=== PATIENT | female | born 1985 | race Caucasian/White ===

== ENCOUNTER 2018-01-05 11:51 | Emergency (ER) | payer OTHER ==
--- NOTE | 2018-01-05 12:43 | ED Physician Documentation ---
PD HPI SKIN - Stated complaint Stated Complaint: RASHES ON BACK - Chief complaint Chief Complaint: Wound - History obtained from History obtained from: Patient - History of Present Illness Timing - onset: Yesterday Timing - duration: Days (2) Timing - details: Gradual onset Pain level max: 7 Pain level now: 7 Location: Back Quality / character: Itchy, Painful, Burning, Other (clusters, no vesicles or pustules) Improved by: Other (hasn't tried anything) Worsened by (comment): COMMENT (nothing) Associated symptoms: No: Fever, Headache, Facial swelling, Dyspnea, Abd pain, N/ V/D Contributing factors: No: Exposed to medication, Exposed to food, Exposed to soap / lotion, Exposed to Poison madeline/oak, Insect bite /sting, Recent illness Similar symptoms before: Has not had sx before Recently seen: Not recently seen Review of Systems Constitutional: denies: Fever, Chills : denies: Now EGA Musculoskeletal: denies: Neck pain, Back pain Neurologic: denies: Headache PD PAST MEDICAL HISTORY - Past Medical History Past Medical History: Yes Derm: Eczema - Past Surgical History Past Surgical History: Yes HEENT: Tonsil/Adenoidectomy - Social History Does the pt smoke?: No Smoking Status: Never smoker Does the pt drink ETOH?: Yes Does the pt have substance abuse?: No - Immunizations Immunizations are current?: Yes PD ED PE NORMAL - Vitals Vital signs reviewed: Yes - General General: Alert and oriented X 3, No acute distress - Cardiac Cardiac: RRR, Strong equal pulses - Respiratory Respiratory: No respiratory distress, Clear bilaterally - Derm Derm: Warm and dry, Other (maculopapular exanthem over the back. + excoriation. no pustules or vesicles. ) - Neuro Neuro: Alert and oriented X 3 - Psych Psych: Normal mood, Normal affect Results - Vitals Vitals: Vital Signs - 24 hr 01/05/18 12:05 Temperature 36.3 C L Heart Rate 57 L Respiratory 16 Rate Blood Pressure 118/64 O2 Saturation 100 Oxygen O2 Source Room air PD MEDICAL DECISION MAKING - ED course Complexity details: considered differential, d/w patient ED course: Patient is a 32-year-old female who presents to the emergency department with a maculopapular exanthem of unclear etiology. Will treat as a nonspecific dermatitis. Does not recall any new detergents, soaps, sheets, clothes, travel , etc. Will place on steroids for the next several days and follow-up with her doctor. Will utilize Benadryl as needed for itching at home. Patient counseled regarding signs and symptoms for which I believe and urgent re- evaluation would be necessary. Patient with good understanding of and agreement to plan and is comfortable going home at this time This document was made in part using voice recognition software. While efforts are made to proofread this document, sound alike and grammatical errors may occur. Departure - Departure Disposition: 01 Home, Self Care Clinical Impression: Dermatitis Condition: Good Instructions: ED Dermatitis Non Specific Rash Follow-Up: your,doctor in 1 week [Other] Comments: Return if you worsen. The cause of your symptoms is unclear today. You can use benadryl for itching.
[2018-01-05] MEDS ORDERED: predniSONE 20 MG TABLET PO STA (12:48)
[2018-01-05 13:05] VITALS: BP 126/72
== END 2018-01-05 13:02 | disposition home or self-care (01) ==
LOC: ED 11:51
DX: L30.9 Dermatitis, unspecified (principal)
CPT/HCPCS: 99283; J7512

== ENCOUNTER 2018-08-23 08:42 | Emergency (ER) | payer OTHER ==
[2018-08-23 08:57] VITALS: BP 119/69
--- NOTE | 2018-08-23 09:11 | ED Physician Documentation ---
PD HPI HEADACHE - Stated complaint Stated Complaint: MIGRAINE - Chief complaint Chief Complaint: Neuro - History obtained from History obtained from: Patient - History of Present Illness Timing - onset: How many days ago (2) Timing - duration: Days (2) Timing - details: Gradual onset Location: Right Associated symptoms: Nausea. No: Fever, Vomiting Worsened by: Light, Noise Similar symptoms before: Diagnosis (migraine) - Additional information Additional information: The patient is a 32-year-old female, at 23 weeks gestation, who presents with right sided headache that started 2 days ago and has persisted since that time. She is also had diarrhea for the past 3 days, as well as nausea. She denies abdominal pain, vomiting, or fever. She has history of migraine headaches that usually resolved with rest and a dark, quiet room. The last time she had a headache similar to her current headache was more than one year ago. She is inclined to not take any medication because of her . Review of Systems Constitutional: denies: Fever Eyes: reports: Photophobia Ears: denies: Tinnitus/ringing Nose: denies: Congestion Throat: denies: Sore throat Cardiac: denies: Chest pain / pressure Respiratory: denies: Dyspnea, Cough GI: reports: Nausea. denies: Abdominal Pain, Vomiting : reports: Now EGA (23 weeks gestation.). denies: Dysuria Skin: denies: Rash Musculoskeletal: denies: Back pain, Extremity pain Neurologic: reports: Headache. denies: Focal weakness, Numbness PD PAST MEDICAL HISTORY - Past Medical History Past Medical History: Yes Neuro: Migraines Endocrine/Autoimmune: None Derm: Eczema - Past Surgical History Past Surgical History: Yes HEENT: Tonsil/Adenoidectomy - Present Medications Home Medications: Ambulatory Orders Medication Instructions Recorded Confirmed HYDROcod/ACETAM 5/325 [[place] 5/325] 1 - 2 ea PO Q6H PRN #12 tablet 08/23/18 Pnv No.122/Iron/Folic Acid 08/23/18 [ Multi Tablet] Prochlorperazine Maleate 10 mg PO TID PRN #15 tablet 08/23/18 [Compazine] - Allergies Allergies/Adverse Reactions: Allergies Allergy/AdvReac Type Severity Reaction Status Date / Time aspirin AdvReac Nausea Verified 01/05/18 12:53 - Social History Does the pt smoke?: No Smoking Status: Never smoker Does the pt drink ETOH?: No Does the pt have substance abuse?: No - Immunizations Immunizations are current?: Yes - POLST Patient has POLST: No PD ED PE NORMAL - Vitals Vital signs reviewed: Yes (normal) - General General: Alert and oriented X 3, Well developed/nourished - HEENT HEENT: Atraumatic, EOMI, Moist mucous membranes, Pharynx benign, Other (Fundi with sharp disc margins, without papilledema.) - Neck Neck: Supple, no meningeal sign, No adenopathy, No JVD - Cardiac Cardiac: RRR, No murmur - Respiratory Respiratory: No respiratory distress, Clear bilaterally - Abdomen Abdomen: Soft, Non tender, Other (Gravid uterus, with normal heart rate of 166.) - Back Back: No CVA TTP - Derm Derm: No rash - Extremities Extremities: No edema, No calf tenderness / cord - Neuro Neuro: Alert and oriented X 3, No motor deficit, No sensory deficit, Normal speech Results - Vitals Vitals: Oxygen O2 Source Room air PD MEDICAL DECISION MAKING - ED course Complexity details: considered differential, d/w patient ED course: The patient's presentation is most consistent with migraine headache. Her presentation does not suggest meningitis, preeclampsia, temporal arteritis, or pseudotumor cerebri. Viral syndrome is considered, given her recent diarrhea, but is less likely. I offered treatment with IV medication, but the patient declined because of her need to drive home after treatment. She is being discharged with prescriptions for Compazine and for Vicodin, 12 tablets. I discussed with her symptomatic treatment, outpatient follow-up, as well as potentially worrisome signs or symptoms that should prompt reevaluation in the emergency department. Departure - Departure Disposition: 01 Home, Self Care Clinical Impression: Headache Qualifiers: Headache type: unspecified Headache chronicity pattern: episodic headache Intractability: not intractable Qualified Code(s): R51 - Headache Qualifiers: Weeks of gestation: 23 weeks Qualified Code(s): Z3A.23 - 23 weeks gestation of Condition: Stable Instructions: ED Headache Migraine Follow-Up: [facility] [Provider Group] Prescriptions: HYDROcod/ACETAM 5/325 [[place] 5/325] 1 - 2 ea PO Q6H PRN #12 tablet PRN Reason: Pain Prochlorperazine Maleate [Compazine] 10 mg PO TID PRN #15 tablet PRN Reason: Nausea / Vomiting Comments: Drink plenty of fluids. Take Compazine as prescribed if needed for nausea or headache. You can use Vicodin as prescribed if needed for headache. Follow-up with your primary physician within 1-2 weeks. Call to schedule an appointment. Return to the emergency department if you develop increasing headache, persistent vomiting, or otherwise worsening symptoms. Forms: Activity restrictions Discharge Date/Time: 08/23/18 09:16
== END 2018-08-23 09:16 | disposition home or self-care (01) ==
LOC: ED 08:42
DX: O26.892 Other specified pregnancy related conditions, second trimester (principal); R51 Headache; Z3A.23 23 weeks gestation of pregnancy
CPT/HCPCS: 99283

== ENCOUNTER 2018-12-09 08:25 | Emergency (ER) | payer OTHER ==
--- NOTE | 2018-12-09 08:49 | ED Physician Documentation ---
PD HPI URI - Stated complaint Stated Complaint: FLU LIKE SX/38 WKS PREG - History obtained from History obtained from: Patient - History of Present Illness Timing - onset: How many days ago (4-5) Timing duration: Days Timing details: Abrupt onset, Still present Associated symptoms: Chills, Nasal congestion, Productive cough. No: Chest pain, Dyspnea Contributing factors: Sick contact (her daughter with similar symptoms.) Similar symptoms before: Has not had sx before Recently seen: Clinic (has had normal exams, is 38 weeks gestational age) Review of Systems Constitutional: reports: Chills, Myalgias. denies: Fever Nose: reports: Rhinorrhea / runny nose, Congestion Throat: denies: Sore throat Cardiac: denies: Chest pain / pressure Respiratory: reports: Dyspnea, Cough. denies: Wheezing GI: reports: Nausea. denies: Vomiting, Diarrhea : reports: Now EGA (38). denies: Dysuria, Vaginal bleeding Skin: denies: Rash, Lesions PD PAST MEDICAL HISTORY - Past Medical History Neuro: Migraines Endocrine/Autoimmune: None Derm: Eczema - Past Surgical History Past Surgical History: Yes HEENT: Tonsil/Adenoidectomy - Present Medications Home Medications: Ambulatory Orders Medication Instructions Recorded Confirmed HYDROcod/ACETAM 5/325 [[place] 5/325] 1 - 2 ea PO Q6H PRN #12 tablet 08/23/18 Pnv No.122/Iron/Folic Acid 08/23/18 [ Multi Tablet] Prochlorperazine Maleate 10 mg PO TID PRN #15 tablet 08/23/18 [Compazine] Amoxicillin 500 mg PO TID #21 capsule 12/09/18 Benzonatate [Tessalon Perle] 100 - 200 mg PO TID PRN #30 capsule 12/09/18 Dextromethorphan HBr [Robitussin] 15 mg PO QID PRN #30 capsule 12/09/18 - Allergies Allergies/Adverse Reactions: Allergies Allergy/AdvReac Type Severity Reaction Status Date / Time aspirin AdvReac Nausea Verified 01/05/18 12:53 - Social History Does the pt smoke?: No Smoking Status: Never smoker Does the pt drink ETOH?: No Does the pt have substance abuse?: No - Immunizations Immunizations are current?: Yes - POLST Patient has POLST: No PD ED PE NORMAL - Vitals Vital signs reviewed: Yes - General General: Alert and oriented X 3, No acute distress, Well developed/nourished - HEENT HEENT: Ears normal, Moist mucous membranes, Pharynx benign - Neck Neck: Supple, no meningeal sign, No adenopathy - Cardiac Cardiac: RRR, No murmur - Respiratory Respiratory: No: Clear bilaterally (some central congested sounds with cough. Peripheral sounds are good. No wheezing. ) - Abdomen Abdomen: Soft, Non tender, Other (gravid with fundus almost to umbilicus. Nurse noted good FHR. ) - Derm Derm: Normal color, Warm and dry - Extremities Extremities: No edema, No calf tenderness / cord Results - Vitals Vitals: Vital Signs - 24 hr 12/09/18 08:52 Temperature 36.6 C Heart Rate 84 Blood Pressure 110/71 O2 Saturation 99 Oxygen O2 Source Room air - Labs Labs: Laboratory Tests 12/09/18 09:26 Influenza A (Rapid) Negative Influenza B (Rapid) Negative PD MEDICAL DECISION MAKING - ED course Complexity details: reviewed results (she and her child both test negative for flu. She has URI symptoms and developed worse cough with sputum. Can treat for possible bacterial, given . ) Departure - Departure Disposition: 01 Home, Self Care Clinical Impression: Upper respiratory infection Qualifiers: URI type: unspecified URI Qualified Code(s): J06.9 - Acute upper respiratory infection, unspecified Acute bronchitis Qualifiers: Bronchitis organism: unspecified organism Qualified Code(s): J20.9 - Acute bronchitis, unspecified Condition: Stable Record reviewed to determine appropriate education?: Yes Instructions: ED Upper Resp Infec Abx Tx Follow-Up: Tereza Gamez MD [Primary Care Provider] - Prescriptions: Amoxicillin 500 mg PO TID #21 capsule Benzonatate [Tessalon Perle] 100 - 200 mg PO TID PRN #30 capsule PRN Reason: Cough Dextromethorphan HBr [Robitussin] 15 mg PO QID PRN #30 capsule PRN Reason: Cough Comments: Drink lots of fluids. Tylenol if needed for fevers and pains. Tessalon can be used for cough. Robitussin (guaifenesin) can be used for cough as well. Amoxicillin as directed. Given your pattern of the illness and now worsening with cough, the concern would be bacterial component to it and so we will add some antibiotics as well. Recheck if not improving over the next few days. Discharge Date/Time: 12/09/18 10:47
[2018-12-09 08:59] VITALS: BP 110/71
[2018-12-09] MEDS ORDERED: BENZONATATE 100 MG CAPSULE PO STA (09:10)
[2018-12-09] MEDS ORDERED: AMOXICILLIN 250 MG CAPSULE PO STA (09:11)
== END 2018-12-09 10:47 | disposition home or self-care (01) ==
LOC: ED 08:25
DX: O99.513 Diseases of the respiratory system complicating pregnancy, third trimester (principal); J20.9 Acute bronchitis, unspecified; J06.9 Acute upper respiratory infection, unspecified; Z3A.38 38 weeks gestation of pregnancy
CPT/HCPCS: 87275; 87276; 99283; A9270

== ENCOUNTER 2018-12-28 07:54 | Emergency (ER) | payer OTHER ==
[2018-12-28 08:05] VITALS: BP 119/72
--- NOTE | 2018-12-28 08:27 | ED Physician Documentation ---
PD HPI HEADACHE - Stated complaint Stated Complaint: MIGRAINE/PELVIC PX - Chief complaint Chief Complaint: Neuro - History obtained from History obtained from: Patient - History of Present Illness Timing - onset: How many days ago (2-3) Timing - onset during: Light activity Timing - duration: Days (2-3) Timing - details: Gradual onset, Still present Worst headache ever?: No: Worst headache ever? (similar to prior migraines but lasting longer than usual. Typically will improve with Ibuprofen and then rest for few hours.) Location: Global Quality: Aching Associated symptoms: Nausea. No: Fever, Stiff neck, Vomiting, Weakness, Vision changes Worsened by: Light Contributing factors: No: Hypertension, Recent illness (but is about 1 weeks post (still born) and is on abx for endometritis.) Similar symptoms before: Diagnosis (has had occasional migraines in the past. Typically uses Ibuprofen and rest for them. No specific migraine med.) Review of Systems Constitutional: denies: Fever, Chills, Myalgias Nose: denies: Rhinorrhea / runny nose, Congestion Throat: denies: Sore throat Respiratory: denies: Cough GI: reports: Nausea. denies: Abdominal Pain, Vomiting, Diarrhea : reports: Other (having some pelvic pains since delivery) PD PAST MEDICAL HISTORY - Past Medical History Neuro: Migraines Endocrine/Autoimmune: None Derm: Eczema - Past Surgical History Past Surgical History: Yes HEENT: Tonsil/Adenoidectomy - Present Medications Home Medications: Ambulatory Orders Medication Instructions Recorded Confirmed HYDROcod/ACETAM 5/325 [[place] 5/325] 1 - 2 ea PO Q6H PRN #12 tablet 08/23/18 Pnv No.122/Iron/Folic Acid 08/23/18 [ Multi Tablet] Prochlorperazine Maleate 10 mg PO TID PRN #15 tablet 08/23/18 [Compazine] Amoxicillin 500 mg PO TID #21 capsule 12/09/18 Benzonatate [Tessalon Perle] 100 - 200 mg PO TID PRN #30 capsule 12/09/18 Dextromethorphan HBr [Robitussin] 15 mg PO QID PRN #30 capsule 12/09/18 Dexamethasone [Decadron] 4 mg PO DAILY #5 tablet 12/28/18 Hydrocodone/Acetaminophen [[place] 1 each PO Q6H PRN #15 tablet 12/28/18 5-325 Tablet] Promethazine [Phenergan] 25 mg PO Q6H PRN #10 tab 12/28/18 Sumatriptan Succinate [Imitrex] 50 mg PO ONCE PRN #5 tablet 12/28/18 - Allergies Allergies/Adverse Reactions: Allergies Allergy/AdvReac Type Severity Reaction Status Date / Time aspirin AdvReac Nausea Verified 12/28/18 08:05 - Social History Does the pt smoke?: No Smoking Status: Never smoker Does the pt drink ETOH?: No Does the pt have substance abuse?: No - Immunizations Immunizations are current?: Yes - POLST Patient has POLST: No PD ED PE NORMAL - Vitals Vital signs reviewed: Yes - General General: Alert and oriented X 3, No acute distress, Well developed/nourished - HEENT HEENT: Moist mucous membranes, Pharynx benign - Neck Neck: Supple, no meningeal sign, No adenopathy - Cardiac Cardiac: RRR, No murmur - Respiratory Respiratory: Clear bilaterally - Derm Derm: Normal color, Warm and dry - Extremities Extremities: Normal ROM s pain - Neuro Neuro: Alert and oriented X 3, 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 Main issue for her tonight is the migraine. She says she is hydrating so did not feel she needed IV fluids. Will give oral meds. ), d/w patient Departure - Departure Disposition: 01 Home, Self Care Clinical Impression: Migraine headache Qualifiers: Migraine type: without aura Status migrainosus presence: with status migrainosus Intractability: not intractable Qualified Code(s): G43.001 - Migraine without aura, not intractable, with status migrainosus Condition: Stable Record reviewed to determine appropriate education?: Yes Instructions: ED Headache Migraine Follow-Up: Tereza Gamez MD [Primary Care Provider] - Prescriptions: Dexamethasone [Decadron] 4 mg PO DAILY #5 tablet Hydrocodone/Acetaminophen [[place] 5-325 Tablet] 1 each PO Q6H PRN #15 tablet PRN Reason: Pain Promethazine [Phenergan] 25 mg PO Q6H PRN #10 tab PRN Reason: Nausea / Vomiting Sumatriptan Succinate [Imitrex] 50 mg PO ONCE PRN #5 tablet PRN Reason: Migraine Comments: Use the Decadron daily for 5 days as directed. Use the Phenergan if needed for nausea and can also be useful for decreasing the migraine. Hydrocodone for pain generally both headache and pelvic. Add ibuprofen or Tylenol as needed. Recheck if the headache is not improved over the next day or two. For subsequent migraines, continue the Motrin and if it is not relieved with that then try the Imitrex with the Phenergan and see if it stops the headache. Follow-up with your primary care. Discharge Date/Time: 12/28/18 09:18
[2018-12-28] MEDS ORDERED: DEXAMETHASONE 10 MG/ML VIAL PO STA (08:41)
[2018-12-28] MEDS ORDERED: PROMETHAZINE 25 MG TABLET PO STA (08:41)
[2018-12-28] MEDS ORDERED: HYDROcod/ACETAM 5/325 MG TABLET PO STA (08:41)
[2018-12-28] MEDS ORDERED: CHERRY SYRUP 10 ML UDC PO ONE (08:53)
== END 2018-12-28 09:18 | disposition home or self-care (01) ==
LOC: ED 07:54
DX: G43.001 Migraine without aura, not intractable, with status migrainosus (principal)
CPT/HCPCS: 99283; A9270; Q0169

== ENCOUNTER 2019-03-20 12:51 | Emergency (ER) | payer OTHER ==
[2019-03-20] MEDS ORDERED: KETOROLAC 60 MG/2 ML VIAL IM STA (14:20)
[2019-03-20] MEDS ORDERED: ONDANSETRON ODT 4 MG TABLET TL STA (14:20)
[2019-03-20] MEDS ORDERED: SUMAtriptan 6 MG/0.5 ML VIAL SUBQ STA (14:20)
--- NOTE | 2019-03-20 14:21 | ED Physician Documentation ---
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 She said 3 hours of gradual onset global migraine similar to prior migraine she is nauseous and light sensitive but has not been vomiting. She has not taken anything for it. She) Review of Systems Constitutional: denies: Fever, Chills Nose: denies: Foreign Body Throat: denies: Dental pain / toothache, Sore throat Cardiac: denies: Chest pain / pressure, Palpitations PD PAST MEDICAL HISTORY - Past Medical History Neuro: Migraines Endocrine/Autoimmune: None Derm: Eczema - Past Surgical History Past Surgical History: Yes HEENT: Tonsil/Adenoidectomy - Present Medications Home Medications: Ambulatory Orders Medication Instructions Recorded Confirmed HYDROcod/ACETAM 5/325 [[place] 5/325] 1 - 2 ea PO Q6H PRN #12 tablet 08/23/18 Pnv No.122/Iron/Folic Acid 08/23/18 [ Multi Tablet] Prochlorperazine Maleate 10 mg PO TID PRN #15 tablet 08/23/18 [Compazine] Amoxicillin 500 mg PO TID #21 capsule 12/09/18 Benzonatate [Tessalon Perle] 100 - 200 mg PO TID PRN #30 capsule 12/09/18 Dextromethorphan HBr [Robitussin] 15 mg PO QID PRN #30 capsule 12/09/18 Hydrocodone/Acetaminophen [[place] 1 each PO Q6H PRN #15 tablet 12/28/18 5-325 Tablet] Promethazine [Phenergan] 25 mg PO Q6H PRN #10 tab 12/28/18 Sumatriptan Succinate [Imitrex] 50 mg PO ONCE PRN #5 tablet 12/28/18 dexAMETHasone [Decadron] 4 mg PO DAILY #5 tablet 12/28/18 Hydrocodone/Acetaminophen 1 - 2 each PO Q6H PRN #5 tablet 03/20/19 [Hydrocodon-Acetaminophen 5-325] Ondansetron Odt [Zofran] 4 mg TL Q6H PRN #10 tablet 03/20/19 SUMAtriptan [Imitrex] 25 mg PO BID PRN #10 tablet 03/20/19 - Allergies Allergies/Adverse Reactions: Allergies Allergy/AdvReac Type Severity Reaction Status Date / Time aspirin AdvReac Nausea Verified 03/20/19 12:56 - Social History Does the pt smoke?: No Smoking Status: Never smoker Does the pt drink ETOH?: No Does the pt have substance abuse?: No - Immunizations Immunizations are current?: Yes - POLST Patient has POLST: No PD ED PE NORMAL - Vitals Vital signs reviewed: Yes - General General: Alert and oriented X 3, No acute distress - HEENT HEENT: PERRL, EOMI - Neck Neck: Supple, no meningeal sign, No bony TTP - Abdomen Abdomen: Non tender - Neuro Neuro: Alert and oriented X 3, Normal speech - Psych Psych: Normal mood, Normal affect Results - Vitals Vitals: Vital Signs - 24 hr 03/20/19 12:52 Temperature 36.7 C Heart Rate 55 L Respiratory 14 Rate Blood Pressure 123/77 O2 Saturation 100 Oxygen O2 Source Room air PD MEDICAL DECISION MAKING - ED course ED course: The headache is gradual in onset and similar to prior headaches. As such I doubt subarachnoid hemorrhage. There are no infectious symptoms such as fever or stiff neck to make me suspect meningitis. No carbon monoxide exposure by history. Departure - Departure Disposition: 01 Home, Self Care Clinical Impression: Migraine headache Qualifiers: Migraine type: without aura Status migrainosus presence: with status migrainosus Intractability: not intractable Qualified Code(s): G43.001 - Migraine without aura, not intractable, with status migrainosus Condition: Good Record reviewed to determine appropriate education?: Yes Instructions: ED Headache Migraine Prescriptions: Hydrocodone/Acetaminophen [Hydrocodon-Acetaminophen 5-325] 1 - 2 each PO Q6H PRN #5 tablet PRN Reason: pain Ondansetron Odt [Zofran] 4 mg TL Q6H PRN #10 tablet PRN Reason: Nausea / Vomiting SUMAtriptan [Imitrex] 25 mg PO BID PRN #10 tablet PRN Reason: Headache Comments: Call your doctor to arrange a follow-up appointment, make the next available appointment. In the interim, return anytime if worse or if new symptoms develop.
[2019-03-20 15:03] VITALS: BP 111/64
== END 2019-03-20 15:06 | disposition home or self-care (01) ==
LOC: ED 12:51
DX: G43.001 Migraine without aura, not intractable, with status migrainosus (principal)
CPT/HCPCS: 96372; 99283; Q0162